=== PATIENT | male | born 1980 | race Caucasian/White ===

== ENCOUNTER 2020-09-23 00:06 | Emergency (ER) | payer OTHER ==
[~2020-09-23] VITALS: Ht 177.8 cm; Wt 81.6 kg
--- NOTE | 2020-09-23 02:43 | NUR ---
Pt refuses all interventions. Pt desires to sleep and have blankets. Pt became aggressive with er physician 30 minutes ago. Will attempt to obtain blood and ekg at this time again.
--- NOTE | 2020-09-23 03:00 | NUR ---
Pt continues to refuse EKG.
[2020-09-23 03:35] LABS: CREATININE 1.1 mg/dL (0.6-1.3); POTASSIUM 3.9 mmol/L (3.5-5.1)
[2020-09-23 03:36] LABS: ETHANOL < 3 MG/DL (0-0)
[2020-09-23 03:41] LABS: BILIRUBIN,DIRECT 0.1 mg/dL (0.0-0.2); BILIRUBIN,TOTAL 0.3 mg/dL (0.2-1.0); TOTAL PROTEIN, SERUM 7.1 g/dL (6.4-8.2)
[2020-09-23 04:17] LABS: HEMATOCRIT 38.7 % (36.7-47.1); MEAN CORPUSCULAR HEMOGLOBIN 27.1 uug (23.8-33.4); PLATELET COUNT (AUTO) 358 K/uL (152-348)
--- NOTE | 2020-09-23 07:00 | NUR ---
recieved pt in bed, pt awake, axox4.
--- NOTE | 2020-09-23 08:05 | NUR ---
pt providing his name to allen ashraf, the pt director of primary care.
--- NOTE | 2020-09-23 08:10 | NUR ---
Patient discharged to home in stable condition. Written and verbal after care instructions given. Patient verbalizes understanding of instructions. Stressed follow up or return to ER for worsening s/s.pt walks in steady gait. axox4. Addendum: 09/23/20 at 0823 by LISHA Patient given written and verbal discharge instructions. Patient verbalizes understanding of instructions. Patient is ambulatory with steady gait. Refuses offer of longterm placement. Patient given list of available shelters in surrounding area.
[2020-09-23 08:24] VITALS: BP 111/69
== END 2020-09-23 08:10 | disposition home or self-care (01) ==
LOC: ER 00:13 → EDBD 00:13 → ER 08:10
DX: T40.411A Poisoning by fentanyl or fentanyl analogs, accidental (unintentional), initial encounter (principal); R40.20 Unspecified coma; Y92.512 Supermarket, store or market as the place of occurrence of the external cause; Z59.0 Homelessness
CPT/HCPCS: 36415; 71045; 85025; 93005; A4663; G0480